=== PATIENT | male | born 1980 | race Caucasian/White ===

== ENCOUNTER → 2017-07-01 | Outpatient (CLI) | payer OTHER ==
[~2017-07-01] MED LIST: CETI-176 PO; CYCL10TA29 PO; FEXO180T87 PO; HYDR-4225 PO; LEVO125T77 PO; LEVO175T38 PO; LEVO175T42 PO; LEVO200T50 PO; MONT10TA PO; NAPR-724 PO; RANI-324 PO
== END ==
LOC: LAB 16:26
PROVIDERS: ATTEND Internal Medicine
DX: E03.9 Hypothyroidism, unspecified (principal)
CPT/HCPCS: 36415; 84443

== ENCOUNTER → 2017-08-06 | Outpatient (CLI) | payer OTHER ==
[~2017-08-06] MED LIST changes: -NAPR-724 PO; +NAPR500T31 PO
== END ==
LOC: LAB 08:48
PROVIDERS: ATTEND Internal Medicine
DX: E03.9 Hypothyroidism, unspecified (principal)
CPT/HCPCS: 36415; 84443

== ENCOUNTER → 2017-08-06 | Outpatient (CLI) | payer OTHER | LOC: RESP 20:40 | PROVIDERS: ATTEND Internal Medicine | DX: G47.33 Obstructive sleep apnea (adult) (pediatric) (principal); G47.37 Central sleep apnea in conditions classified elsewhere; G47.36 Sleep related hypoventilation in conditions classified elsewhere; E66.9 Obesity, unspecified ==

== ENCOUNTER → 2017-10-02 | Outpatient (CLI) | payer OTHER ==
[~2017-10-02] MED LIST changes: +IBUP800T37 PO; -RANI-324 PO; +RANI-366 PO
== END ==
LOC: RESP 20:42
PROVIDERS: ATTEND Internal Medicine
DX: G47.33 Obstructive sleep apnea (adult) (pediatric) (principal); G47.37 Central sleep apnea in conditions classified elsewhere; E66.9 Obesity, unspecified